=== PATIENT | male | born 1975 | race African-American/Black ===

== ENCOUNTER 2018-04-06 10:55 | Emergency (ER) | payer OTHER ==
[~2018-04-06] VITALS: Ht 170.2 cm; Wt 74.8 kg
[2018-04-06 10:58] VITALS: Ht 170.2 cm; Wt 74.8 kg
[2018-04-06] MEDS ORDERED: IBUPROFEN 600 MG TAB PO ONE (13:00)
--- NOTE | 2018-04-06 13:22 | ERD ---
ER Documentation Chief Complaint Chief Complaint left leg numbness and pain since last night HPI This is a 43-year-old male with a history of methamphetamine dependency presents to ED with complaints of paresthesias since last night. Patient states that he was smoking methamphetamine last night and he started to experience tingling and numbness along the right leg as well as tightness of the left inner thigh. Patient denies any fall or injury to account for pain. Patient is unsure if he fell asleep in a funny position. Denies back pain. Denies headache, blurry v ision, changes in vision, nausea, vomiting, worse headache of life, weakness, confusion and all other symptoms ROS All systems reviewed and are negative except as per history of present illness. Allergies Allergies: Coded Allergies: No Known Allergy (Unverified , 04/06/18) PMhx/Soc Medical and Surgical Hx: pt denies Surgical Hx Hx Cardiac Disorders: Yes (HEART MURMURS) Hx Miscellaneous Medical Probl: Yes (PANCREATIC PROBLEMS) Hx Alcohol Use: Yes Hx Substance Use: Yes Hx Tobacco Use: Yes Smoking Status: Current every day smoker FmHx Family History: No diabetes Physical Exam Vitals Vital Signs Date Temp Pulse Resp B/P (MAP) Pulse Ox O2 O2 Flow FiO2 Time Delivery Rate 04/06/18 98.1 87 18 134/83 96 10:58 (100) Physical Exam Physical Exam Vitals signs: Reviewed by me. General: Well developed, well nourished, in no acute distress. Patient is awake and alert. Head: Normocephalic, atraumatic. Eyes: Normal conjunctiva, Pupils PERRLA, EOM intact grossly ENT: Pharynx is clear, Moist mucous membranes, external ears, nose and mouth normal Neck: Supple, no masses, lymphadenopathy or JVD Respiratory: Clear to auscultation bilaterally with no wheezing, rhonchi, rales, no distress Cardiovascular: RRR, no murmurs, rubs, or gallops MSK: No edema, no unilateral swelling, 5/5 strength Lower Extremity - bilateral: Skin: No laceration Compartments: Soft Motor: Full active range of motion hip/knee/ankle/foot Sensation: Intact to light touch FDWS/MF/LF/P surfaces. Bones: Nontender pelvis/knee/proximal tibia/ malleoli/foot Joints: No effusion or laxity Pulses/Perfusion: 2+ DP, Capillary refill < 2 seconds Back: No midline tenderness. No flank tenderness Neurologic: Alert and oriented x3, moving all extremities, normal speech, no focal weakness, no cerebellar signs. Normal mentatio Cranial nerves II through XII tested with no deficit Neuro: M/S: Alert and oriented x3 Face: EOMI, face and pharynx with normal sensation and function Motor: Normal strength throughout Sensation: Normal sensation throughout Speech: Normal Cerebel: Normal coordination Normal gait Normal finger to nose DTR: 2+ and symmetric upper/lower extremities Skin: warm and dry, No rash Psych: Anxious Results 24 hrs Current Medications Medications Dose Sig/Isabella Start Time Status Last (Trade) Ordered Route PRN Stop Time Admin Dose Reason Admin Ibuprofen 600 mg ONCE ONCE 04/06/18 DC (Motrin) PO 13:00 04/06/18 13:01 Procedures/MDM EKG, MONITORS, & DIAGNOSTIC IMAGING: [place] [address] Radiology Main Line: [phone] DIAGNOSTIC IMAGING REPORT Patient: REGINA DRUMMOND : 1975 Age: 43 Sex: M MR #: [id number] DOS: 04/06/18 1253 Ordering MD: BRIAN BHAT PA-C Location: [facility] Room/Bed: PROCEDURE: Noncontrast CT Head. CLINICAL INDICATION: Headache TECHNIQUE: Noncontrast CT of the head was obtained. The administered radiation dose was CTDI vol = 48 mGy, DLP = 863 mGy-cm. DICOM images are available. One or more of the following dose reduction techniques were used: Automated exposure control, Adjustment of the mA and/or kV according to patient size, or Use of iterative reconstruction technique. COMPARISON: There are no similar studies submitted for comparison. FINDINGS: Streak artifact limits evaluation. There is no acute intracranial hemorrhage, midline shift, or mass effect. The cerebral poole-white matter differentiation appears preserved. No extra-axial collection is seen. The cerebral sulci and ventricles are within normal limits in size and configuration for patient's age. There is a 2 mm chronic lacunar infarct versus prominent perivascular space in the left posterior lentiform nucleus (series 4, image 11). The cerebral attenuation is otherwise within normal limits. The basilar cisterns are preserved. The brainstem and cerebellum are grossly unremarkable, although suboptimally evaluated with CT secondary to beam-hardening artifact. The partially imaged orbits are unremarkable. The visualized paranasal sinuses and m astoid air cells are well-aerated. There is partial pneumatization of the petrous pyramids bilaterally. No acute calvarial fracture or suspicious osseous lesion is identified. IMPRESSION: 1. No evidence of an acute intracranial process. 2. 2 mm chronic lacunar infarct versus prominent perivascular space in the left posterior lentiform nucleus. RPTAT: AA Physician Karina Date Time Electronically viewed and signed by Physician Karina on 04/06/2018 13:21 RC/ CC: BRIAN BHAT PA-C [id number] [place] [address] Radiology Main Line: [phone] DIAGNOSTIC IMAGING REPORT Patient: REGINA DRUMMOND : 1975 Age: 43 Sex: M MR #: [id number] DOS: 04/06/18 1253 Ordering MD: BRIAN BHAT PA-C Location: [facility] Room/Bed: PROCEDURE: CT L-Spine. CLINICAL INDICATION: Low back pain with lower extremity radiculopathy TECHNIQUE: A CT of the lumbar spine was performed on a [employer] 64-slice CT scanner utilizing high-resolution thin section axial images from the thoracic lumbar junction through the lumbar sacral junction. Sagittal and coronal and multiplanar reformatted images were made.The CTDIvol is 8.59 mGy and the DLP is 257.86 mGycm. DICOM images are available. One or more of the following dose reduction techniques were utilized: 1.) Automated exposure control 2.) Adjustment of the mA +/- kV according to patient's size 3.) Use of iterative reconstruction technique. COMPARISON: None available FINDINGS: No acute fracture of the lumbar spine. Vertebral body heights are maintained. Normal lordosis without vertebral body subluxation. Small bone island in the spinous process of L4. Small broad-based disc bulges and mild bilateral facet arthropathy L3-L4, L4-L5, and L5-S1 resulting mild bilateral foraminal stenosis at those levels. No significant spinal canal stenosis. Remaining levels are within normal limits. No acute abnormality of the paravertebral soft tissues is detected. IMPRESSION: No acute fracture or malalignment lumbar spine. Small disc bulges and mild facet arthropathy results in mild bilateral foraminal stenosis at L3-L4, L4-L5, and L5-S1. RPTAT:AAJJ Physician Deyanira Date Time Electronically viewed and signed by Barbara Austin Physician on 04/06/2018 13:27 RF/ CC: BRIAN BHAT PA-C [id number] ER COURSE: The patient was given ibuprofen The medication was well tolerated and the patient reports improvement in symptoms. The patient was stable throughout ED course. I kept the patient and/or family informed of laboratory and diagnostic imaging results throughout the emergency room course. The patient was promptly evaluated and a treatment plan was devised based on H&P and other data. This plan was discussed with the patient who agreed and had no further questions or concerns prior to discharge. MEDICAL DECISION MAKING: This is a 43-year-old male with a history of methamphetamine dependency presents ED with complaints of paresthesias since last night of right lower extremity. CT imaging of lumbar spine and head are unremarkable for any acute pathology. I believe that patient's symptoms are likely due to methamphetamine use. At this time there is no neurologic emergency. Patient is nontender palpation along the lumbar spine. No evidence of cauda equina syndrome, epidural abscess, infectious etiology, infiltrative etiology, cord compression, AAA, stroke, CVA, TIA, intracranial lesion, intracranial mass, epidural hematoma, subdural hematoma, subarachnoid hemorrhage, intracranial hemorrhage among other neurologic emergencies. Discussed with patient the importance of discontinuing methamphetamine use. Patient was advised to follow-up with neurology. Patient's vitals are stable he can be managed close outpatient follow-up. Advised patient follow-up with primary care in the next 48 hours. Return to ED with any worsening symptoms DISPOSITION PLAN: We discussed follow up with the patient's primary care doctor within 24 to 48 hours. Patient counseled regarding my diagnostic impression and care plan. Prior to discharge all questions answered. Pt agrees with treatment plan and understands strict return precautions. Precautionary instructions provided including instructions to return to the ER if not improving or for any worsening or changing symptoms or concerns. SPECIALIST FOLLOW UP RECOMMENDED: Neurology Patient has been advised to follow up with primary care in 1-2 days. Disclaimer: Inadvertent spelling and grammatical errors are likely due to EHR/dictation software use and do not reflect on the overall quality of patient care. Also, please note that the electronic time recorded on this note does not necessarily reflect the actual time of the patient encounter. Blood Pressure Assessment: Patient's blood pressure was elevated (>120/80) but appears stable without evidence of hypertension emergency or urgency. The patient was counseled about the risks of hypertension and urged to pursue outpatient monitoring and therapy within a week with their primary care physician. Departure Diagnosis: Primary Impression: Paresthesias Additional Impression: Methamphetamine dependence Condition: Stable Patient Instructions: Paraesthesias, Understanding Methamphetamine Abuse and Addiction Referrals: TOY SERRATO MD, JAMES MILLER, CHAD M. MD [facility] Additional Instructions: Patient advised to return to the ED immediately for new or worsening symptoms. Patient advised to follow up with primary care provider in the next 24-48 hours. Patient verbalized understanding and agrees with treatment plan and course of action. If patient has no primary care they may follow up with one of the community clinics listed on the following page or one of the options listed below [facility] [address] [place] [id number] or [facility] [address] [place] [address] [address] BRIAN BHAT PA-C Apr 06, 2018 13:22
[2018-04-06 14:15] VITALS: BP 130/82; PULSE 82; RESP 18
[2018-05-11] MEDS ORDERED: IBUP-1542 PO (06:48)
== END 2018-04-06 14:36 | disposition home or self-care (01) ==
LOC: FTE 10:55
DX: R20.2 Paresthesia of skin (principal); F17.210 Nicotine dependence, cigarettes, uncomplicated; F15.20 Other stimulant dependence, uncomplicated
CPT/HCPCS: 70450; 72131; Z7502; Z7610